=== PATIENT | female | born 1935 | race Caucasian/White ===

== ENCOUNTER 2018-03-19 15:50 | Emergency (ER) | payer MEDICARE, OTHER ==
[2018-03-19 17:01] LABS: #Basophils 0.1 thou/uL (0.0-0.2); #Eosinphils 0.4 thou/uL (0.0-0.7); #Lymphocytes 1.2 thou/uL (1.20-3.40); #Monocytes 0.6 thou/uL (0.11-0.59); #Neutrophils 3.4 thou/uL (1.40-6.50); %Basophils 1.1 % (0.0-1.0); %Eosinophils 7.2 % (0.0-10.0); %Lymphocytes 20.5 % (21.0-51.0); %Neutrophils 60.2 % (42.0-75.0); Hemoglobin 13.9 g/dL (12.0-16.0); Mean Corpuscular HGB CONC 32.5 g/dL (32.0-36.0); Mean Corpuscular Hemoglobin 28.6 pg (27.0-31.0); Mean Corpuscular Volume 88.2 fL (78.0-98.0); Mean Platelet Volume 7.7 fL (7.4-10.4); Platelet Count 275 thou/uL (130-400); RBC Distribution Width 13.1 % (11.5-14.5); Red Blood Cell (RBC) Count 4.86 mill/uL (4.20-5.40); White Blood Cell (WBC) Count 5.7 thou/uL (4.8-10.8)
[2018-03-19] MEDS ORDERED: Meclizine HCl 25 MG TAB ONE (17:11)
[2018-03-19 17:19] LABS: Bilirubin Negative (Negative); Blood, Urine Negative (Negative); Clarity CLEAR (Clear); Glucose, Urine (Dipstick) Negative (Negative); Leukocyte Negative (Negative); Nitrite Negative (Negative); Protein, Urine (Dipstick) Negative (Neg-Trace); Specific Gravity, Urine 1.006 (1.002-1.036); Urobilinogen 0.2 mg/dL (0.2-1.0); pH, Urine 7.5 (5.0-9.0)
[2018-03-19 17:28] LABS: CKMB 1.8 ng/mL (0-6.6); Troponin I 0.011 ng/mL (< 0.028)
[2018-03-19 17:54] LABS: ALT (SGPT) 13 U/L (8-55); Albumin 4.2 g/dL (3.4-4.8); Alkaline Phosphatase 91 U/L (40-150); BUN (Urea Nitrogen) 19 mg/dL (9.8-20.1); Bilirubin, Total 0.5 mg/dL (0.2-1.2); CK (CPK) 63 U/L (29-168); Calc. Creatinine Clearance 0 mL/min (70-130); Calcium 10.5 mg/dL (7.8-10.44); Carbon Dioxide 27 mmol/L (23-31); Chloride 101 mmol/L (98-107); Estimated GFR-MDRD 51; Glucose 98 mg/dL (83-110); Lipase 19 U/L (8-78); Sodium 136 mmol/L (136-145)
[2018-03-19 18:07] LABS: AST (SGOT) 16 U/L (5-34); Anion Gap 13 mmol/L (10-20); Globulin 2.7 g/dL (2.4-3.5); Potassium 5.3 mmol/L (3.5-5.1); Protein, Total 6.9 g/dL (6.0-8.3)
--- NOTE | 2018-03-19 18:09 | RAD ---
RADIOGRAPH CHEST 1 VIEW: Date: 03/19/18 HISTORY: 82-year-old female with dizziness and altered mental status. FINDINGS: There is hyperinflation of the lungs, consistent with COPD. The thoracic aorta is tortuous and ectat ic. There is no evidence of air space density, pneumothorax, or pulmonary edema. The lateral costop hrenic angles are sharp. There is no cardiomegaly. There is a dual lead left subclavian pacemaker. Mild infiltrate-like densit y at the left base is probably chronic, although it is difficult to be sure without prior studies for comparison. IMPRESSION: 1. No acute pulmonary findings. 2. Emphysema. 3. Ectasia of thoracic aorta. milagros [] POS: PHILLIP
--- NOTE | 2018-03-19 18:11 | CT ---
CT BRAIN NONCONTRAST: DATE: 03/19/18 TIME: 1513 hours HISTORY: 82-year-old female with altered mental status. FINDINGS: There is no midline shift or any other mass effect. There is no evidence of acute intracranial hemor rhage, large cortical infarct, obstructive hydrocephalus, or extraaxial fluid collection. The calvar ium is intact. There is diffuse parenchymal volume loss. There are low attenuation areas in the whi te matter. These are nonspecific, but in a patient of this age, they are probably chronic ischemic w melania matter changes due to microvascular atherosclerosis. Again noted are the multiple old lacunar infarctions involving the caudate heads, anterior portions o f basal ganglia, and anterior limbs of internal capsules. No interval change overall since 08/25/16. IMPRESSION: 1. No acute intracranial findings. 2. Involutional changes and chronic ischemic white matter changes. 3. Multiple, extensive, old lacunar infarctions of bilateral caudate nuclei, basal ganglia, and ante rior limbs of bilateral internal capsules. milagros [] POS: PHILLIP
== END 2018-03-19 18:12 | disposition home or self-care (01) ==
LOC: ERS 15:50
DX: I95.1 Orthostatic hypotension (principal); I10 Essential (primary) hypertension; Z86.73 Personal history of transient ischemic attack (TIA), and cerebral infarction without residual deficits; F32.9 Major depressive disorder, single episode, unspecified
CPT/HCPCS: 36415; 70450; 71045; 80053; 81003; 82553; 83690; 83880; 84146; 84484; 85025; 93005

== ENCOUNTER 2019-12-06 08:45 | Inpatient (IN) | payer MEDICARE, OTHER ==
[2019-12-06 16:28] LABS: Hemoglobin 11.3 g/dL (12.0-16.0); Mean Corpuscular HGB CONC 32.2 g/dL (32.0-36.0); Mean Corpuscular Hemoglobin 28.2 pg (27.0-31.0); Mean Corpuscular Volume 87.4 fL (78.0-98.0); Mean Platelet Volume 7.7 fL (7.4-10.4); Platelet Count 405 thou/uL (130-400); RBC Distribution Width 14.6 % (11.5-14.5); Red Blood Cell (RBC) Count 4.02 mill/uL (4.20-5.40); White Blood Cell (WBC) Count 7.8 thou/uL (4.8-10.8)
[2019-12-06 16:50] LABS: Anion Gap 14 mmol/L (10-20); BUN (Urea Nitrogen) 18 mg/dL (9.8-20.1); Calc. Creatinine Clearance 0 mL/min (70-130); Calcium 8.6 mg/dL (7.8-10.44); Carbon Dioxide 33 mmol/L (23-31); Chloride 95 mmol/L (98-107); Estimated GFR-MDRD 56; Glucose 117 mg/dL (83-110); Potassium 3.2 mmol/L (3.5-5.1); Sodium 139 mmol/L (136-145)
[2019-12-07 14:04] LABS: SARS-CoV-2 MS2 Positive; SARS-CoV-2 N Gene Negative; SARS-CoV-2 S Gene Negative; SARS-CoV-2 by NAA Not Detected (NotDetected); SARS-CoV-2 orf1ab Negative
[2019-12-10] MEDS ORDERED: Fentanyl 100 MCG/2 ML VIAL ONE ×2 (07:12→10:19)
[2019-12-10] MEDS ORDERED: Bupivacaine PF 0.5% 30 ML VIAL ONE (09:33)
[2019-12-10] MEDS ORDERED: Ondansetron PF 4 MG/2 ML Vial ONE ×2 (09:36→11:49)
[2019-12-10] MEDS ORDERED: Glycopyrrolate 0.2 MG/ML 5 ML SYRINGE ONE (09:36)
[2019-12-10] MEDS ORDERED: Lidocaine 1% PF 5 ML VIAL ONE (09:36)
[2019-12-10] MEDS ORDERED: Rocuronium Bromide 10 MG/ML (10ML VIAL) ONE (09:36)
[2019-12-10] MEDS ORDERED: PROPOFOL 200 MG/20 ML VIAL ONE (09:36)
[2019-12-10] MEDS ORDERED: Ondansetron PF 4 MG/2 ML Vial IVP PRN (09:59)
[2019-12-10] MEDS ORDERED: Fentanyl 100 MCG/2 ML VIAL SLOW IVP PRN (09:59)
[2019-12-10] MEDS ORDERED: Sodium Chloride 0.9% 1,000 ML IV SCH (10:00)
--- NOTE | 2019-12-10 10:42 | RAD ---
XR Chest 1 View Portable History: Thoracotomy Comparison: Radiograph March 2018 Findings: Right basilar pneumothorax with indwelling thoracostomy tube. Moderate left layering pleura l effusion. Heart size is enlarged. Dual-lead pacer electrode tips project over the right atrium and right ventricle. Impression: 1. Moderate right basilar pneumothorax with indwelling thoracostomy tube. 2. Moderate layering left pleural effusion.
[2019-12-10] MEDS ORDERED: Labetalol HCl 100 MG/20 ML VIAL ONE (11:08)
--- NOTE | 2019-12-10 12:55 | OP ---
DATE OF PROCEDURE: 12/10/2019 PREOPERATIVE DIAGNOSIS: Recurrent right pleural effusion. POSTOPERATIVE DIAGNOSIS: Recurrent right pleural effusion. PROCEDURE PERFORMED: Thoracoscopy with evacuation of fluid. FINDINGS: The patient had about 2 L of clear yellow fluid. DESCRIPTION OF PROCEDURE: After adequate double-lumen endotracheal anesthesia had been obtained, the patient was placed in the left lateral decubitus position. A small incision was made and a 5 trocar was inserted and fluid was evacuated from the chest. Inspection of the chest cavity demonstrated no nodularity or other abnormalities. The lung appeared to be stuck to the chest wall and with inflation partly inflated the cavity. At that point, options included a thoracotomy for formal decortication and the patient had expressed no interest in having her chest cracked as she explained. For this reason, I felt that continuous suction was more appropriate than a PleurX catheter for drainage since she had a previous PleurX catheter without much improvement. For this reason, a 32 right angle chest tube was placed through a separate incision. Marcaine was used to infiltrate the tissues and the wound was closed. The patient was to be taken to the recovery room. Job ID: [id number]
[2019-12-10] MEDS: CEFAZOLIN 2 GM in Premix Bag 1 BAG IVPB SCH (16:49)
[2019-12-10] MEDS: HYDROcodone/Acetaminophen 5/325 mg Tablet PO PRN ×2 (17:37→21:13)
[2019-12-10] MEDS: Atorvastatin Calcium 10 MG TAB PO SCH (19:58)
[2019-12-10] MEDS: Enoxaparin Sodium 30 MG/0.3 ML SYRINGE SC SCH (19:58)
[2019-12-10] MEDS: Latanoprost 0.005% Ophth Soln 2.5 ml Bottle EA EYE SCH (19:59)
[2019-12-11] MEDS: HYDROcodone/Acetaminophen 5/325 mg Tablet PO PRN ×4 (01:03→18:45)
[2019-12-11] MEDS: CEFAZOLIN 2 GM in Premix Bag 1 BAG IVPB SCH ×2 (01:04→08:27)
[2019-12-11] MEDS: Carvedilol 3.125 MG TAB PO SCH ×2 (08:25→16:04)
[2019-12-11] MEDS: Potassium Chloride 20 MEQ TAB PO SCH (08:26)
[2019-12-11] MEDS: Furosemide 40 MG TAB PO SCH (08:26)
[2019-12-11] MEDS: Leflunomide 10 mg Tablet PO SCH (08:26)
[2019-12-11] MEDS: Aspirin 81 mg Enteric Coated Tablet PO SCH (08:26)
[2019-12-11] MEDS: Methimazole 5 MG TAB PO SCH (08:26)
[2019-12-11] MEDS: Timolol 0.5% Ophth Soln 5 ml Bottle EA EYE SCH (08:29)
[2019-12-11] MEDS: Latanoprost 0.005% Ophth Soln 2.5 ml Bottle EA EYE SCH ×2 (08:30→19:53)
--- NOTE | 2019-12-11 08:48 | RAD ---
AP CHEST: INDICATION: Post thoracotomy. COMPARISON: 12/10/2019. FINDINGS: Right chest tube is unchanged. Right basilar atelectasis and/or infiltrate. Bilateral effusions. C ardiomegaly. Traces of COPD. Bilateral apical pleural thickening and parenchymal scarring. Pacemak er leads are unchanged. IMPRESSION: Above findings appear stable from 12/10/2019. POS: AGW
[2019-12-11] MEDS ORDERED: Carvedilol 3.125 MG TAB PO SCH (09:00)
[2019-12-11] MEDS: Atorvastatin Calcium 10 MG TAB PO SCH (19:52)
[2019-12-11] MEDS: Enoxaparin Sodium 30 MG/0.3 ML SYRINGE SC SCH (19:52)
--- NOTE | 2019-12-12 07:41 | RAD ---
Portable frontal chest radiograph: 12/12/2019 COMPARISON: 12/11/2019 HISTORY: Evaluate chest following thoracotomy FINDINGS: Stable inferior right chest tube with small right basilar pneumothorax. Stable nonspecific pleural and parenchyma opacity in the left lung base. Stable dual lead transvenous pacing device. Interstitial prominence and pulmonary hyperinflation pers ists. Stable nonspecific pleural thickening in the right lung apex in the lateral aspect of the right lung base. IMPRESSION: No significant interval change.
[2019-12-12] MEDS: Leflunomide 10 mg Tablet PO SCH (09:17)
[2019-12-12] MEDS: Carvedilol 3.125 MG TAB PO SCH ×2 (09:17→18:11)
[2019-12-12] MEDS: Furosemide 40 MG TAB PO SCH (09:17)
[2019-12-12] MEDS: Potassium Chloride 20 MEQ TAB PO SCH (09:17)
[2019-12-12] MEDS: Methimazole 5 MG TAB PO SCH (09:17)
[2019-12-12] MEDS: Aspirin 81 mg Enteric Coated Tablet PO SCH (09:17)
[2019-12-12] MEDS: Latanoprost 0.005% Ophth Soln 2.5 ml Bottle EA EYE SCH ×2 (09:17→20:25)
[2019-12-12] MEDS: Timolol 0.5% Ophth Soln 5 ml Bottle EA EYE SCH (09:18)
[2019-12-12] MEDS: HYDROcodone/Acetaminophen 5/325 mg Tablet PO PRN ×2 (09:25→18:12)
[2019-12-12] MEDS: Enoxaparin Sodium 30 MG/0.3 ML SYRINGE SC SCH (20:24)
[2019-12-12] MEDS: Atorvastatin Calcium 10 MG TAB PO SCH (20:24)
[2019-12-12] MEDS: hydrALAZINE 20 MG/ML VIAL SLOW IVP PRN (20:25)
[2019-12-13] MEDS: hydrALAZINE 20 MG/ML VIAL SLOW IVP PRN (06:02)
--- NOTE | 2019-12-13 09:32 | RAD ---
CHEST 1 VIEW: INDICATION: Status post thoracotomy. COMPARISON: Prior exam dated 12/12/2019. FINDINGS: There are small bilateral pleural effusions. There is a right-sided thoracostomy tube. Cardiomegaly persists. Chronic lung changes are similar-appearing. Airspace disease of the left lower lobe is s imilar-appearing. Dual-lead pacemaker is unchanged. No pneumothorax is evident. IMPRESSION: Stable exam. POS: BH
[2019-12-13] MEDS: Furosemide 40 MG TAB PO SCH (09:35)
[2019-12-13] MEDS: Aspirin 81 mg Enteric Coated Tablet PO SCH (09:35)
[2019-12-13] MEDS: Potassium Chloride 20 MEQ TAB PO SCH (09:35)
[2019-12-13] MEDS: Carvedilol 3.125 MG TAB PO SCH (09:37)
[2019-12-13] MEDS: Leflunomide 10 mg Tablet PO SCH (09:38)
[2019-12-13] MEDS: Methimazole 5 MG TAB PO SCH (09:48)
[2019-12-13 11:11] LABS: Fungus Stain Final report (.)
[2019-12-13 12:03] VITALS: TEMP 97.9
[2019-12-13] MEDS: Latanoprost 0.005% Ophth Soln 2.5 ml Bottle EA EYE SCH (14:54)
[2019-12-13] MEDS: Timolol 0.5% Ophth Soln 5 ml Bottle EA EYE SCH (14:56)
[2019-12-13 15:37] VITALS: BP 122/56
--- NOTE | 2019-12-13 16:18 | DIS ---
DATE OF ADMISSION: 12/10/2019 DATE OF DISCHARGE: 12/13/2019 HISTORY OF PRESENT ILLNESS: 84-year-old female who had bilateral pleural effusions and had undergone placement of a right-sided PleurX catheter a couple months ago by Dr. Garvey and had then recurrent subpulmonic effusion with dyspnea and underwent a thoracoscopy with chest tube placement. Decortication with an open approach was perhaps a good choice in her, but she was refusing a thoracotomy, so the area was inspected, there was no suspicious lesions to biopsy and chest tube was left to suction. Over the course of several days, she put out a total of 350 mL with 250 mL being the initial 24 hours and then over the next 72 hours she only put out about 100 mL. She does have a small subpulmonic space due to incomplete lung re-expansion. She will be discharged to rehab as she presented in a very weak and deconditioned state and will resume her home medicines. She was somewhat hypertensive on occasion and required some IV hydralazine. Discharge and followup instructions were given. Job ID: [id number]
--- NOTE | 2019-12-16 02:57 | PQF ---
Dear : Jluián Huston Date : 12/16/19 Please exercise your independent, professional judgment in responding to the clarification form. Clinical indicators are provided on the bottom of this form for your review Can you please further clarify the diagnosis of the patient? Please check appropriate box(es): [ ] Pneumothorax [ ] Atelectasis [ ] Insignificant chest X- ray findings [ y ] Other diagnosis please specify _trapped lung [ ] Unable to determine In addition, please specify: Present on Admission (POA): [ y ] Yes [ ] No [ ] Unable to determine Physician Signature: Date/Time: For continuity of documentation, please document condition throughout progress notes and discharge summary. Thank You. To be completed by CDI/Coding staff for physician review: Present Clinical Indicators - Signs / Symptoms / Labs Results and Location in Medical Record [ x ] Right basilar pneumothorax with indwelling thoracostomy tube Chest X ray [ x ] Right basilar atelectasis ans/ or infiltrates Chest X ray 12/10 [ x ] Stable inferior right chest tube with small basilar pneumothorax Chest X ray 12/11 Present Risk Factors Results and Location in Medical Record [ x ] Recurrent Pleural effusion OP report pg.1 [ x ] 84 years old H and P pg.1 Present Treatments Results and Location in Medical Record [ x ] Chest X ray 12/09 [ x ] Thoracoscopy with evacuation of fluid OP report [ x ] DuoNeb 3ml NEB MAR [ x ] Incentive spirometry Patient care CDS/Fire Sprinkler Installer Signature: Duarte Hale Phone #: ext [phone] Date: 12/16/19 This is a permanent part of the Medical Record [facility]
--- NOTE | 2019-12-16 17:01 | EKG ---
Test Reason : PREOP Blood Pressure : / mmHG Vent. Rate : 076 BPM Atrial Rate : 076 BPM P-R Int : 000 ms QRS Dur : 096 ms QT Int : 388 ms P-R-T Axes : 000 -64 157 degrees QTc Int : 436 ms Electronic atrial pacemaker Left anterior fascicular block Nonspecific T wave abnormality Abnormal ECG No previous ECGs available Confirmed by OMAR PAYAN (2) on 12/16/2019 5:01:23 PM Referred By: VIKTORIYA Confirmed By:OMAR PAYAN
== END 2019-12-13 15:17 | disposition home or self-care (01) | DRG 168 ==
LOC: SURG A 12-10 07:07 → EDSTATUS 12-10 12:15 → SURG A 12-10 12:43
PROVIDERS: ADMIT Thoracic Surgery (Cardiothoracic Vascular Surgery); ATTEND Thoracic Surgery (Cardiothoracic Vascular Surgery)
PROC: 0W9940Z Drainage of Right Pleural Cavity with Drainage Device, Percutaneous Endoscopic Approach (ICD-10-PCS; principal; 2019-12-10)
DX: J90 Pleural effusion, not elsewhere classified (principal); Z20.828 Contact with and (suspected) exposure to other viral communicable diseases; I10 Essential (primary) hypertension; E78.5 Hyperlipidemia, unspecified; I25.10 Atherosclerotic heart disease of native coronary artery without angina pectoris; I73.9 Peripheral vascular disease, unspecified; H40.9 Unspecified glaucoma; H35.30 Unspecified macular degeneration; E03.9 Hypothyroidism, unspecified; M19.90 Unspecified osteoarthritis, unspecified site; F17.210 Nicotine dependence, cigarettes, uncomplicated; J98.4 Other disorders of lung; F32.9 Major depressive disorder, single episode, unspecified; Z95.1 Presence of aortocoronary bypass graft; Z79.899 Other long term (current) drug therapy; Z79.82 Long term (current) use of aspirin; Z88.2 Allergy status to sulfonamides
CPT/HCPCS: 36416; 71045; 80048; 85027; 86850; 86900; 86901; 87070; 87102; 87116; 87205; 87206; 87635; 88112; 93005; 93010; C1729; J0360; J0690; J1650; J2405; J2704; J3010; S0020; U0003

== ENCOUNTER → 2019-12-23 | Day surgery (SDC) | payer MEDICARE ==
[~2019-12-23] MED LIST: Fentanyl 100 MCG/2 ML VIAL ONE; Nitroglycerin 0.4 MG TAB 1 EACH ONE; PROPOFOL 200 MG/20 ML VIAL ONE
--- NOTE | 2019-12-23 15:19 | RAD ---
XR Chest 1 View Portable HISTORY: Chest pain COMPARISON: 12/18/2019 FINDINGS: The heart size is stable. The aorta is tortuous. Left-sided pacemaker device remains in norma ce. Bilateral small pleural effusions with adjacent ectatic changes are stable. No pneumothoraces are seen. IMPRESSION: Stable exam.
--- NOTE | 2019-12-23 22:30 | CON ---
DATE OF CONSULTATION: 12/23/2019 REASON FOR CONSULTATION: Food bolus impaction. CONSULTING PROVIDER: Sherice Corona DO HISTORY OF PRESENT ILLNESS: The patient is an 84-year-old female with past medical history of hypertension, paroxysmal atrial fibrillation on anticoagulation with aspirin and Lovenox, hyperlipidemia, TIA, and stenosis of the bilateral carotid arteries, presenting with complaints of dysphagia. The patient was recently discharged from the hospital for the recurrence of right-sided pleural effusion for which the patient had undergone a PleurX catheter that had failed. She subsequently underwent chest tube placement during the last hospitalization with drainage of fluid over the course of her hospital stay. At the end of her hospital stay, she was having minimal output from the chest tube and subsequently it was removed and she was transferred to [facility] for further rehab. This was approximately 1 week ago. However, earlier today when eating mashed potatoes she experienced acute onset dysphagia characterized as the food getting stuck at the level of the thyroid cartilage at which point, the patient was unable to tolerate her own saliva and could not drink or eat any additional food stuffs without generating increased nausea and vomiting. With this finding, she was subsequently brought to the [facility] ER for further evaluation and upon initial evaluation, the patient did have an emesis bag at bedside, but was able to tolerate her own secretions. Swallow tests were initially unsuccessful with the patient vomiting the ingested water almost immediately. However, during my evaluation, she states that she had been able to drink some water and it had gone down with some difficulty without inducing nausea and vomiting, but she still feels like "there is something just partially in there." On further questioning, she states that she has been having increased dysphagia over the last 4 to 5 years, characterized as increased choking with either solid or liquid intake but primarily with solid food intake. She adds that she has to chew her food to a fine pulp before ingestion to side step this episodes of choking. These episodes of choking/gagging were for almost daily and are transient in nature. She states that she has had a history of food impaction for which the patient had undergo upper endoscopy with food bolus disimpaction, but she could not remember where and when this was performed or what the outcome of the upper endoscopy was. She did not follow up with a physician in the post procedure. Otherwise, she states that she has been having increased constipation characterized as hard to pass stools that she would have every 2 to 3 days, but has been improved with the administration of MiraLAX. Currently, she denies any nausea, vomiting, fevers, chills, hematemesis, melena, hematochezia, abdominal pain, diarrhea, or weight loss. REVIEW OF SYSTEMS: A 10-category review of systems was obtained with all responses negative except for the pertinent positives as listed in HPI. PAST MEDICAL HISTORY: As per HPI. PAST SURGICAL HISTORY: Right ovary resection, thoracentesis, right parathyroidectomy, chest tube placement, pacemaker placement, right carotid endarterectomy, and left carotid endarterectomy. FAMILY HISTORY: Denies any GI malignancies. SOCIAL HISTORY: Denies any tobacco, alcohol, or illicit drug use. OUTPATIENT MEDICATIONS: Reviewed. ALLERGIES: SULFA. PHYSICAL EXAMINATION: VITAL SIGNS: Were not recorded into her chart as of yet. GENERAL: The patient is lying in bed, in no acute distress. Alert and oriented x3. HEENT: Normocephalic, atraumatic. NECK: Supple. No JVD or scleral icterus noted. Surgical scar noted at the base of the neck at the sternal notch. CARDIOVASCULAR: Irregularly irregular rhythm with no discernible murmurs, gallops, or rubs. RESPIRATORY: Clear to auscultation bilaterally, but with some diminished breath sounds in the right lower lobe. ABDOMEN: Normoactive bowel sounds. Soft, nontender, and nondistended. EXTREMITIES: No cyanosis, clubbing, or edema. LABORATORY DATA: CBC with a white blood cell count of 6, hemoglobin 9.5, hematocrit 30, platelets 312. Chemistry with a sodium 131, potassium 3.4, chloride 94, CO2 of 27, BUN 14, creatinine 0.77, glucose 92, AST 17, ALT less than 7, alkaline phosphatase 75, total bilirubin 0.5, albumin 2.6. BNP obtained on December 14, 2019, was 674. IMAGING DATA: Her chest x-ray obtained on December 23, 2019, showed heart size was stable with a left-sided pacemaker device in appropriate position. Bilateral small pleural effusions with adjacent atelectatic changes were stable. No pneumothoraces seen. ASSESSMENT AND PLAN: The patient is an 84-year-old female with past medical history of hypertension, occlusion/stenosis of bilateral carotid arteries status post endarterectomy, transient ischemic attack, paroxysmal atrial fibrillation on anticoagulation with Lovenox, hyperlipidemia, and recurrent right-sided pleural effusion status post PleurX catheter and more recently chest tube placement, presenting with acute food bolus impaction. Food bolus impaction/dysphagia. The patient is presenting with acute onset of dysphagia characterized as the sensation of food getting stuck at the level of the thyroid cartilage. She adds that this has been present for the last 4 to 5 years, but has been more characterized by increased choking episodes with the ingestion of primarily solid foods. She has had a previous episode of food impaction in the past approximately five years ago, but could not remember the details associated with this particular condition or the interventions taken at that time. At the current time, she is able to tolerate her own secretions and was able to drink some water at bedside without difficulty, but still has a strong sensation that things were in her esophagus concerning for partial obstruction at this time with a possible stricture or anatomical stenosis of the esophagus creating her current symptoms. At this time, urgent upper endoscopy is recommended for further evaluation but if a stenosis is discovered, no anticoagulation can be performed due to her concurrent use of anticoagulation with the last dose given this morning of Lovenox. RECOMMENDATIONS: 1. Would continue patient on n.p.o. status in anticipation of EGD. 2. plan for upper endoscopy today for possible food bolus extraction. 3. Dilation is not planned at this time even if clinically indicated due to concurrent use of anticoagulation with dose this morning. 4. Would recommend placing the patient on acid reflux medication/continuation of her acid reflux medication (the patient is on pantoprazole 40 mg daily as an outpatient). 5. Recommend adequate chewing of food prior to ingestion. 6. Further recommendations to follow upper endoscopy. We will continue to follow. Please call with any questions. Job ID: [id number]
--- NOTE | 2019-12-23 22:37 | OP ---
DATE OF PROCEDURE: 12/23/2019 PROCEDURE PERFORMED: Esophagogastroduodenoscopy with biopsy. INDICATIONS FOR PROCEDURE: Esophageal food bolus impaction. DESCRIPTION OF PROCEDURE: After the risks and benefits of the procedure were explained to the patient including risks of bleeding, infection, perforation, reactions to anesthesia, aspiration, and/or pain, informed consent was obtained. The patient was then taken to the endoscopy suite, where she was maneuvered into the left lateral decubitus position, followed by introduction of deep sedation via propofol and anesthesia support. Once adequate sedation was achieved, the standard gastroscope was introduced into the mouth with intubation of the esophagus, stomach, and the proximal small intestines with the findings listed below. The patient tolerated the procedure well with no immediate perioperative complications. On conclusion of the procedure, all equipment was removed from the patient and she was transferred to PACU in satisfactory condition. FINDINGS: Esophagus: Normal-appearing mucosa was seen in the proximal, mid, and distal esophagus; however, a nonobstructive fibrous ring was seen directly at the gastroesophageal junction, but was easily traversed with the standard gastroscope. Otherwise, there was no evidence of erosions, ulcerations, mass lesions, food bolus, or active/recent bleeding. Biopsies were then taken from the distal esophagus and proximal esophagus for evaluation of possible eosinophilic esophagitis. Stomach: Normal-appearing mucosa was seen in the gastric cardia, fundus, body, greater curvature, antrum, and incisura. There was no evidence of erosions, ulcerations, mass lesions, or active/recent bleeding. Duodenum: Normal-appearing mucosa was seen in both the duodenal bulb and second portion of the duodenum. There was no evidence of erosions, ulcerations, mass lesions, or active/recent bleeding. IMPRESSION: 1. Nonobstructive fibrous ring seen at the gastroesophageal junction that was easily traversed with the standard gastroscope. No dilation performed today due to the patient's concurrent administration of anticoagulation earlier this morning. 2. No evidence of food bolus impaction. 3. Otherwise normal upper endoscopy. RECOMMENDATIONS: 1. We would follow up on the biopsy results for possible eosinophilic esophagitis. 2. We would repeat the upper endoscopy at the earliest convenience while off anticoagulation for possible dilation performed at that time. 3. We would recommend a modified barium swallow study for evaluation of possible/probable oropharyngeal dysphagia. 4. Recommend PPI 40 mg daily for possible acid reflux/EOE. 5. Recommend adequate chewing of food prior to swallowing. The patient can be discharged back to the rehab center with soft mechanical diet. We will sign off at this time. Please call with any questions. Job ID: [id number]
== END ==
LOC: ERS 14:21 → SDC/OP 17:58
PROVIDERS: ATTEND Internal Medicine
PROC: 0DB58ZX Excision of Esophagus, Via Natural or Artificial Opening Endoscopic, Diagnostic (ICD-10-PCS; principal; 2019-12-23)
DX: T18.128A Food in esophagus causing other injury, initial encounter (principal); I10 Essential (primary) hypertension; I48.0 Paroxysmal atrial fibrillation; E78.5 Hyperlipidemia, unspecified; F32.9 Major depressive disorder, single episode, unspecified; Z79.01 Long term (current) use of anticoagulants; Z79.82 Long term (current) use of aspirin; Z79.899 Other long term (current) drug therapy; Z86.73 Personal history of transient ischemic attack (TIA), and cerebral infarction without residual deficits; Z88.2 Allergy status to sulfonamides; Z95.0 Presence of cardiac pacemaker
CPT/HCPCS: 43239; 71045; J1610; 88305; 88312; 88313; J2704; J3010